=== PATIENT | female | born 1995 | race African-American/Black ===

== ENCOUNTER 2017-04-29 19:20 | Emergency (ER) | payer OTHER ==
[2017-04-29 19:43] LABS: Bilirubin Negative (Negative); Blood, Urine Negative (Negative); Glucose, Urine (Dipstick) Negative (Negative); Ketone, Urine Trace mg/dL (Negative); Nitrite Negative (Negative); Protein, Urine (Dipstick) 30 mg/dL (Neg-Trace)
[2017-04-29 19:45] LABS: Bacteria/HPF Rare-Few HPF (None Seen); Hyaline Casts/LPF 4-6 HYALINE CAST LPF (0-3 Hyaline); RBC/HPF 0-3 HPF (0-3)
== END 2017-04-29 19:59 | disposition home or self-care (01) ==
LOC: ERS 19:20
DX: N89.8 Other specified noninflammatory disorders of vagina (principal); F32.9 Major depressive disorder, single episode, unspecified; F17.210 Nicotine dependence, cigarettes, uncomplicated
CPT/HCPCS: 81003; 81015; 81025; 87491; 87591; 99406

== ENCOUNTER 2017-10-02 17:19 | Emergency (ER) | payer OTHER | END 2017-10-02 18:51 | disposition left against medical advice (07) | LOC: ERS 17:19 | DX: Z53.21 Procedure and treatment not carried out due to patient leaving prior to being seen by health care provider (principal) ==

== ENCOUNTER 2017-10-02 19:17 | Emergency (ER) | payer OTHER ==
[2017-10-02] MEDS ORDERED: Lidocaine 1% PF 5 ML VIAL ONE (19:55)
[2017-10-02] MEDS ORDERED: Bacitracin Zinc 1 Packet ONE (20:51)
== END 2017-10-02 21:05 | disposition home or self-care (01) ==
LOC: ERS 19:17
DX: S01.511A Laceration without foreign body of lip, initial encounter (principal); F41.9 Anxiety disorder, unspecified; F31.9 Bipolar disorder, unspecified; F17.210 Nicotine dependence, cigarettes, uncomplicated; W22.09XA Striking against other stationary object, initial encounter; Y93.61 Activity, american tackle football
CPT/HCPCS: 12011; J2001

== ENCOUNTER 2018-01-15 17:51 | Emergency (ER) | payer OTHER ==
[2018-01-15 18:37] LABS: #Basophils 0.1 thou/uL (0.0-0.2); #Eosinphils 0.2 thou/uL (0.0-0.7); #Monocytes 0.5 thou/uL (0.11-0.59); #Neutrophils 5.7 thou/uL (1.40-6.50); %Basophils 0.7 % (0.0-1.0); %Eosinophils 2.4 % (0.0-10.0); %Lymphocytes 23.6 % (21.0-51.0); %Neutrophils 67.4 % (42.0-75.0); Hemoglobin 13.8 g/dL (12.0-16.0); Mean Corpuscular Hemoglobin 30.5 pg (27.0-31.0); Mean Corpuscular Volume 89.6 fL (78.0-98.0); Mean Platelet Volume 7.3 fL (7.4-10.4); Platelet Count 317 thou/uL (130-400); RBC Distribution Width 13.3 % (11.5-14.5); Red Blood Cell (RBC) Count 4.53 mill/uL (4.20-5.40); White Blood Cell (WBC) Count 8.5 thou/uL (4.8-10.8)
[2018-01-15 18:45] LABS: Bilirubin Negative (Negative); Blood, Urine Negative (Negative); Clarity CLOUDY (Clear); Glucose, Urine (Dipstick) Negative (Negative); Leukocyte Small (Negative); Nitrite Negative (Negative); Protein, Urine (Dipstick) 100 mg/dL (Neg-Trace); Specific Gravity, Urine 1.027 (1.002-1.036); Urobilinogen 0.2 mg/dL (0.2-1.0)
[2018-01-15 18:47] LABS: Bacteria/HPF None Seen HPF (None Seen); Pathc Cast-AUWi Flag 2.47 (0-2.49); RBC/HPF 0-3 HPF (0-3)
[2018-01-15] MEDS ORDERED: Acetaminophen 500 MG TAB ONE (18:49)
[2018-01-15 18:55] LABS: Amphetamine Detected (NotDetected); Barbiturates Screen Not Detected (NotDetected); Benzodiazepine Screen Not Detected (NotDetected); Cocaine Metabolite Screen Detected (NotDetected); Medtox Control Line Valid? VALID (VALID); Medtox Reader # READER 4; Methadone Not Detected (NotDetected); Methamphetamine Detected (NotDetected); Opiate Screen Not Detected (NotDetected); Oxycodone Screen Not Detected (NotDetected); Phencyclidine (PCP) Not Detected (NotDetected); THC/Cannabinoid Screen Detected (NotDetected); Tricyclic Screen Not Detected (NotDetected)
[2018-01-15 18:57] LABS: Acetaminophen Less than 6.0 mcg/mL (10.0-30.0); Alcohol Less than 10 mg/dL (Less than 10); CK (CPK) 106 U/L (29-168); Salicylate Less than 8.0 mg/dL (15.0-30.0)
[2018-01-15 18:58] LABS: ALT (SGPT) 12 U/L (8-55); AST (SGOT) 13 U/L (5-34); Albumin 4.4 g/dL (3.5-5.0); Alkaline Phosphatase 84 U/L (40-150); Anion Gap 13 mmol/L (10-20); BUN (Urea Nitrogen) 12 mg/dL (7.0-18.7); Bilirubin, Total 0.5 mg/dL (0.2-1.2); Calc. Creatinine Clearance 0 mL/min (70-130); Calcium 9.6 mg/dL (7.8-10.44); Carbon Dioxide 21 mmol/L (22-29); Chloride 106 mmol/L (98-107); Estimated GFR-MDRD Greater than 90; Globulin 3.4 g/dL (2.4-3.5); Glucose 99 mg/dL (70-105); Potassium 3.6 mmol/L (3.5-5.1); Protein, Total 7.8 g/dL (6.0-8.3); Sodium 136 mmol/L (136-145)
[2018-01-15 19:07] LABS: Hyaline Casts/LPF 4-6 HYALINE CAST LPF (0-3 Hyaline)
[2018-01-15] MEDS ORDERED: Lorazepam 2 MG/ML VIAL ONE (19:47)
== END 2018-01-15 23:56 | disposition home or self-care (01) ==
LOC: ERS 17:51
DX: F43.20 Adjustment disorder, unspecified (principal); F43.9 Reaction to severe stress, unspecified; F19.10 Other psychoactive substance abuse, uncomplicated; F31.9 Bipolar disorder, unspecified; F41.9 Anxiety disorder, unspecified; F20.9 Schizophrenia, unspecified; F17.210 Nicotine dependence, cigarettes, uncomplicated
CPT/HCPCS: 36415; 80053; 80306; 80307; 81003; 81015; 82550; 85025; 99285; J2060

== ENCOUNTER 2018-03-04 14:03 | Emergency (ER) | payer OTHER ==
[2018-03-04 14:36] LABS: #Basophils 0.1 thou/uL (0.0-0.2); #Eosinphils 0.2 thou/uL (0.0-0.7); #Lymphocytes 3.1 thou/uL (1.20-3.40); #Monocytes 0.8 thou/uL (0.11-0.59); #Neutrophils 5.3 thou/uL (1.40-6.50); %Basophils 1.2 % (0.0-1.0); %Eosinophils 1.7 % (0.0-10.0); %Lymphocytes 32.5 % (21.0-51.0); %Monocytes 8.5 % (0.0-10.0); %Neutrophils 56.2 % (42.0-75.0); Hemoglobin 12.7 g/dL (12.0-16.0); Mean Corpuscular HGB CONC 34.5 g/dL (32.0-36.0); Mean Corpuscular Hemoglobin 30.8 pg (27.0-31.0); Mean Corpuscular Volume 89.3 fL (78.0-98.0); Mean Platelet Volume 7.2 fL (7.4-10.4); Platelet Count 304 thou/uL (130-400); RBC Distribution Width 12.9 % (11.5-14.5); Red Blood Cell (RBC) Count 4.13 mill/uL (4.20-5.40); White Blood Cell (WBC) Count 9.5 thou/uL (4.8-10.8)
--- NOTE | 2018-03-04 15:39 | ULT ---
TRANSABDOMINAL AND TRANSVAGINAL PELVIC ULTRASOUND: HISTORY: History of prior with pelvic pain and vaginal bleeding. TECHNIQUE: Zavala scale, color Doppler, vascular duplex, and spectral analysis is performed. FINDINGS: The uterus measures 9.2 x 4.7 x 5.7 cm. Endometrial stripe is 5 mm. The right ovary measures 3.8 x 2.3 x 2.4 cm. The left ovary measures 3.4 x 1.9 x 1.9 cm. There is n ormal flow to both ovaries. No free fluid is evident. IMPRESSION: No intrauterine gestation is demonstrated. Findings may reflect missed or early o r ectopic. Continued beta HCG followup and sonographic followup is recommended. POS: [facility]
[2018-03-04] MEDS ORDERED: Acetaminophen 500 MG TAB ONE (15:49)
[2018-03-04 16:24] LABS: Bilirubin Negative (Negative); Blood, Urine Large (Negative); Clarity CLOUDY (Clear); Glucose, Urine (Dipstick) Negative (Negative); Leukocyte Small (Negative); Nitrite Negative (Negative); Protein, Urine (Dipstick) 30 mg/dL (Neg-Trace); Specific Gravity, Urine 1.033 (1.002-1.036); pH, Urine 6.5 (5.0-9.0)
[2018-03-04 16:26] LABS: Bacteria/HPF None Seen HPF (None Seen); Hyaline Casts/LPF 0-3 HYALINE CAST LPF (0-3 Hyaline); Pathc Cast-AUWi Flag 0.29 (0-2.49); RBC/HPF GREATER THAN 50-TNTC HPF (0-3)
[2018-03-04 16:30] LABS: Renal Epithelial None Seen HPF (0-3); Transitional Epithelial NONE SEEN HPF (0-3)
== END 2018-03-04 16:34 | disposition home or self-care (01) ==
LOC: ERS 14:03
DX: O20.9 Hemorrhage in early pregnancy, unspecified (principal); O99.341 Other mental disorders complicating pregnancy, first trimester; F31.9 Bipolar disorder, unspecified; F41.9 Anxiety disorder, unspecified; F20.9 Schizophrenia, unspecified; O99.331 Smoking (tobacco) complicating pregnancy, first trimester; F17.210 Nicotine dependence, cigarettes, uncomplicated
CPT/HCPCS: 36415; 76856; 81003; 81015; 84702; 85025; 86850; 86900; 86901; 96374; J2270

== ENCOUNTER 2018-03-05 12:23 | Emergency (ER) | payer OTHER ==
[2018-03-05 13:02] LABS: #Basophils 0.1 thou/uL (0.0-0.2); #Eosinphils 0.2 thou/uL (0.0-0.7); #Lymphocytes 3.2 thou/uL (1.20-3.40); #Monocytes 0.6 thou/uL (0.11-0.59); #Neutrophils 4.7 thou/uL (1.40-6.50); %Eosinophils 2.3 % (0.0-10.0); %Lymphocytes 36.2 % (21.0-51.0); %Monocytes 7.1 % (0.0-10.0); %Neutrophils 53.4 % (42.0-75.0); Hemoglobin 13.1 g/dL (12.0-16.0); Mean Corpuscular HGB CONC 32.7 g/dL (32.0-36.0); Mean Corpuscular Hemoglobin 30.2 pg (27.0-31.0); Mean Corpuscular Volume 92.3 fL (78.0-98.0); Mean Platelet Volume 7.4 fL (7.4-10.4); Platelet Count 303 thou/uL (130-400); RBC Distribution Width 13.1 % (11.5-14.5); Red Blood Cell (RBC) Count 4.35 mill/uL (4.20-5.40); White Blood Cell (WBC) Count 8.9 thou/uL (4.8-10.8)
--- NOTE | 2018-03-05 14:40 | ULT ---
TRANSABDOMINAL AND TRANSVAGINAL PELVIC ULTRASOUND: INDICATION: Pelvic pain, rule out ectopic. COMPARISON: Prior exam dated 03/04/18. TECHNIQUE: Zavala scale, color Doppler, and vascular duplex is performed via a transabdominal and transvaginal charlse long. FINDINGS: Uterus measures 9 x 4.3 x 5.7 cm. Endometrial stripe measures 2.8 mm. The right ovary measures 4 x 1.8 x 0.3 cm. The left ovary measures 3.9 x 2.3 x 2.7 cm. There is normal flow to both ovaries. No free fluid is evident. IMPRESSION: No abnormality is seen. POS: [facility]
[2018-03-05] MEDS ORDERED: Morphine 4 MG/ML VIAL ONE (14:50)
[2018-03-07 22:37] LABS: Chlamydia by PCR Not Detected (NotDetected); GC by PCR Not Detected (NotDetected)
== END 2018-03-05 15:34 | disposition home or self-care (01) ==
LOC: ERS 12:23
DX: R10.9 Unspecified abdominal pain (principal); R10.30 Lower abdominal pain, unspecified; F41.9 Anxiety disorder, unspecified; F31.9 Bipolar disorder, unspecified; F20.9 Schizophrenia, unspecified; F17.210 Nicotine dependence, cigarettes, uncomplicated
CPT/HCPCS: 36415; 76856; 84702; 85025; 86850; 86900; 86901; 87480; 87491; 87510; 87591; 87660; 96361; 96374; J2270

== ENCOUNTER 2018-06-03 18:36 | Emergency (ER) | payer OTHER ==
[2018-06-03] MEDS ORDERED: Ondansetron ODT 4 MG TAB ONE (18:57)
[2018-06-03 19:04] LABS: #Basophils 0.1 thou/uL (0.0-0.2); #Eosinphils 0.2 thou/uL (0.0-0.7); #Lymphocytes 2.6 thou/uL (1.20-3.40); #Monocytes 0.6 thou/uL (0.11-0.59); #Neutrophils 7.9 thou/uL (1.40-6.50); %Basophils 0.9 % (0.0-1.0); %Eosinophils 1.5 % (0.0-10.0); %Lymphocytes 22.8 % (21.0-51.0); %Monocytes 5.5 % (0.0-10.0); %Neutrophils 69.4 % (42.0-75.0); Mean Corpuscular HGB CONC 33.4 g/dL (32.0-36.0); Mean Corpuscular Hemoglobin 30.1 pg (27.0-31.0); Mean Corpuscular Volume 90.3 fL (78.0-98.0); Mean Platelet Volume 7.5 fL (7.4-10.4); Platelet Count 330 thou/uL (130-400); RBC Distribution Width 13.3 % (11.5-14.5); Red Blood Cell (RBC) Count 4.32 mill/uL (4.20-5.40); White Blood Cell (WBC) Count 11.4 thou/uL (4.8-10.8)
[2018-06-03 19:44] LABS: Bilirubin Negative (Negative); Blood, Urine Large (Negative); Clarity CLEAR (Clear); Glucose, Urine (Dipstick) Negative (Negative); Leukocyte Trace (Negative); Nitrite Negative (Negative); Protein, Urine (Dipstick) Negative (Neg-Trace); Specific Gravity, Urine 1.028 (1.002-1.036); Urobilinogen 0.2 mg/dL (0.2-1.0)
[2018-06-03 19:47] LABS: Bacteria/HPF None Seen HPF (None Seen); Hyaline Casts/LPF 0-3 HYALINE CAST LPF (0-3 Hyaline); Pathc Cast-AUWi Flag 0.14 (0-2.49); RBC/HPF GREATER THAN 50-TNTC HPF (0-3); Squamous Epithelial 0-3 HPF (0-3)
[2018-06-03] MEDS ORDERED: Ketorolac Tromethamine 30 MG/ML VIAL ONE ×2 (20:17→20:34)
--- NOTE | 2018-06-03 21:20 | ULT ---
PELVIS ULTRASOUND: HISTORY: Positive home test. The patient started spotting this morning. Sharp pains. TECHNIQUE: Real-time imaging of the pelvis was obtained both transabdominally, as well as with an endovaginal pr obe. FINDINGS: The uterus measures 9.2 cm in length. The endometrium is 5 to 6 mm. The right and left ovaries show small follicles. Trace free fluid is seen. On Doppler evaluation with spectral analysis, normal flow is shown to both adnexa. IMPRESSION: No definite signs of any intrauterine or ectopic . This does not exclude an early . The free fluid seen is felt to be fairly physiologic. POS: [facility]
[2018-06-04 23:01] LABS: Chlamydia by PCR Not Detected (NotDetected); GC by PCR Not Detected (NotDetected)
== END 2018-06-03 20:41 | disposition home or self-care (01) ==
LOC: ERS 18:36
DX: N92.6 Irregular menstruation, unspecified (principal); F41.9 Anxiety disorder, unspecified; F31.9 Bipolar disorder, unspecified; F17.210 Nicotine dependence, cigarettes, uncomplicated
CPT/HCPCS: 36415; 76856; 81003; 81015; 84702; 85025; 86900; 86901; 87480; 87491; 87510; 87591; 87660; 96372; J1885; Q0162

== ENCOUNTER 2024-05-15 21:50 | Emergency (ER) | payer OTHER | END 2024-05-15 22:23 | disposition left against medical advice (07) | LOC: ERS 21:50 | DX: Z53.21 Procedure and treatment not carried out due to patient leaving prior to being seen by health care provider (principal) ==

== ENCOUNTER 2024-05-20 10:09 | Emergency (ER) | payer OTHER ==
[2024-05-20 10:52] LABS: Bacteria/HPF None Seen HPF (None Seen); Bilirubin Negative (Negative); Blood, Urine Negative (Negative); CAUTI Indications for Culture Pelvic or flank pain; Clarity Clear (Clear); Glucose, Urine (Dipstick) Normal (Negative); Ketone, Urine Negative (Negative); Leukocyte Negative Leu/uL (Negative); Nitrite Negative (Negative); Protein, Urine (Dipstick) Negative (Neg-Trace); RBC/HPF 0-3 HPF (0-3); Specific Gravity, Urine 1.013 (1.002-1.036); Squamous Epithelial 0-3 HPF (0-3); Urobilinogen Normal mg/dL (Less than 2); WBC/HPF 0-3 HPF (0-3); pH, Urine 6.5 (5.0-9.0)
[2024-05-20 11:00] LABS: Urine Culture Reflex No No
[2024-05-20 11:06] LABS: Pregnancy Test - Urine (BHCG) Negative (Negative); Pregu Control Background? CLEAR/WHITE (CLR/WHITE); Pregu Control Bar Appear? YES (CONTROL BAR); Specific Gravity 1.013 (1.002-1.036)
[2024-05-20] MEDS ORDERED: Iopamidol-370 76% 500 ML MDV (1 ML CHARGE) ONE (11:35)
[2024-05-20 11:54] LABS: #Basophils 0.07 10x3/uL (0.0-0.2); %Basophils 0.6 % (0.0-1.0); %Lymphocytes 37.7 % (21.0-51.0); %Monocytes 5.3 % (0.0-10.0); %Neutrophils 52.8 % (42.0-75.0); Hematocrit 40.5 % (36.0-47.0); Hemoglobin 13.4 g/dL (12.0-16.0); Mean Corpuscular HGB CONC 33.1 g/dL (32.0-36.0); Mean Corpuscular Hemoglobin 28.1 pg (27.0-31.0); Mean Corpuscular Volume 84.9 fL (78.0-98.0); Mean Platelet Volume 9.8 fL (7.4-10.4); Platelet Count 316 10x3/uL (130-400); RBC Distribution Width 15.4 % (11.5-14.5); Red Blood Cell (RBC) Count 4.77 mill/uL (4.20-5.40)
[2024-05-20] MEDS ORDERED: Morphine 4 MG/ML VIAL ONE (11:57)
[2024-05-20] MEDS ORDERED: Ondansetron PF 4 MG/2 ML Vial ONE (12:04)
[2024-05-20 12:45] LABS: ALT (SGPT) 13 U/L (8-55); AST (SGOT) 13 U/L (5-34); Albumin 3.1 g/dL (3.5-5.0); Alkaline Phosphatase 60 U/L (40-110); Anion Gap 11 mmol/L (10-20); BUN (Urea Nitrogen) 8 mg/dL (7.0-18.7); Bilirubin, Total 0.3 mg/dL (0.2-1.2); Calc. Creatinine Clearance 0 mL/min (70-130); Calcium 8.2 mg/dL (7.8-10.44); Carbon Dioxide 22 mmol/L (22-29); Chloride 110 mmol/L (98-107); Estimated GFR 122; Globulin 3.4 g/dL (2.4-3.5); Glucose 81 mg/dL (70-105); Lipase 20 U/L (8-78); Potassium 3.9 mmol/L (3.5-5.1); Protein, Total 6.5 g/dL (6.0-8.3); Sodium 139 mmol/L (136-145)
== END 2024-05-20 13:12 | disposition home or self-care (01) ==
LOC: ERS 10:09
DX: R10.31 Right lower quadrant pain (principal); R10.813 Right lower quadrant abdominal tenderness; F17.210 Nicotine dependence, cigarettes, uncomplicated; Z55.6 Problems related to health literacy; Z75.3 Unavailability and inaccessibility of health-care facilities
CPT/HCPCS: 36415; 71046; 74177; 80053; 81001; 81025; 83690; 85025; 96374; 96375; J2272; J2405

== ENCOUNTER 2024-08-10 22:06 | Emergency (ER) | payer OTHER ==
[2024-08-10] MEDS ORDERED: Ibuprofen 800 MG TAB ONE (23:02)
== END 2024-08-10 23:25 | disposition home or self-care (01) ==
LOC: ERS 22:06
DX: M79.89 Other specified soft tissue disorders (principal); F17.210 Nicotine dependence, cigarettes, uncomplicated

== ENCOUNTER 2024-08-15 18:50 | Emergency (ER) | payer OTHER ==
[2024-08-15] MEDS ORDERED: Dexamethasone 10 MG/ML VIAL ONE (19:21)
[2024-08-15] MEDS ORDERED: Ibuprofen 200 MG TAB ONE (21:17)
== END 2024-08-15 21:24 | disposition home or self-care (01) ==
LOC: ERS 18:50
DX: J02.9 Acute pharyngitis, unspecified (principal); F17.210 Nicotine dependence, cigarettes, uncomplicated
CPT/HCPCS: 87081; 87428; 87430; 96372; 99284; J1100